=== PATIENT | female | born 1980 | race Caucasian/White ===

== ENCOUNTER 2016-08-22 09:16 | Emergency (ER) | payer BC ==
[2016-08-22 09:16] VITALS: BMI 24.7
[2016-08-22 09:24] VITALS: TEMP 98.4
[2016-08-22 10:09] LABS: RBC URINE 5 /hpf (0-3); URINE BILIRUBIN NEGATIVE (NEGATIVE); URINE BLOOD 1+ (NEGATIVE); URINE COLOR Yellow (YELLOW); URINE GLUCOSE (UA) NORMAL (Normal); URINE KETONE NEGATIVE (NEGATIVE); URINE LEUKOCYTE ESTERASE NEG Leu/uL (Negative); URINE PROTEIN NEGATIVE (NEGATIVE); URINE UROBILINOGEN NORMAL mg/dL (0.2-1.0); WBC URINE 1 /hpf (0-5)
[2016-08-22] MEDS ORDERED: Sodium Chloride 0.9% 1,000 ML IV STA (10:58)
[2016-08-22] MEDS ORDERED: Sodium Chloride 0.9% 1,000 ML ONE (11:12)
[2016-08-22 11:25] LABS: BASO % 0.4 % (0.0-2.0); EOS # 0.1 K/uL (0.0-0.7); EOS % 1.4 % (0.0-4.0); HEMATOCRIT 40.8 % (34.0-47.0); LYMPH # 2.8 K/uL (1.0-4.3); MEAN CELL VOLUME 85.8 fL (81.0-99.0); MEAN CORPUSCULAR HEMOGLOBIN 29.7 pg (27.0-31.0); MEAN CORPUSCULAR HGB CONC 34.6 g/dL (33.0-37.0); MEAN PLATELET VOLUME 8.9 fL (7.2-11.7); MONO # 0.5 K/uL (0.0-0.8); MONO % 6.5 % (0.0-10.0); RED CELL DISTRIBUTION WIDTH 12.7 % (11.5-14.5); WHITE BLOOD COUNT 7.7 K/uL (4.8-10.8)
--- NOTE | 2016-08-22 11:31 | RAD ---
PROCEDURE: Cervical Spine Radiographs. HISTORY: Pain. COMPARISON: None. FINDINGS: BONES: Alignment maintained. No fracture. Dens Intact. DISC SPACES: Normal. SOFT TISSUES: Normal. No prevertebral soft tissue swelling. OTHER FINDINGS: None. IMPRESSION: Normal cervical spine radiographs
[2016-08-22 11:34] LABS: CHLORIDE 101 mmol/L (98-107); SODIUM 137 mmol/L (132-148)
[2016-08-22 11:36] LABS: BILIRUBIN,TOTAL 0.5 mg/dL (0.2-1.3); GFR AFRICAN-AMERICAN > 60
[2016-08-22 11:37] LABS: ALB/GLOB RATIO 1.9 (1.0-2.1); ALKALINE PHOSPHATASE 42 U/L (38-126); ALT/SGPT 28 U/L (9-52); AST/SGOT 18 U/L (14-36); BLOOD UREA NITROGEN 8 mg/dL (7-17); CALCIUM 9.1 mg/dl (8.6-10.4); CARBON DIOXIDE 25 mmol/L (22-30); GLUCOSE,RANDOM 113 mg/dL (65-105); TOTAL PROTEIN 7.7 g/dL (6.3-8.3)
--- NOTE | 2016-08-22 12:29 | C.PDOC ---
History Of Present Illness 36 yr old female presents to the ER with complaints of RUQ pain, interminttently for the past several months. Patient states she is unsure what makes it worse and usually has nausea with the pain. Patient is also complaining of pain to the right lateral side of neck for the past few days. Patient denies any injury, trauma, vision changes, chest pain, SOB, vomiting, diarrhea, constipation, dysuria, incontinence, back pain, headache, weakness or numbness. Time Seen by Provider: 08/22/16 10:04 Chief Complaint (Nursing): Abdominal Pain History Per: Patient History/Exam Limitations: no limitations Onset/Duration Of Symptoms: Days (Few days for neck pain ), Persistent (Several months ) Location Of Pain/Discomfort: RUQ Past Medical History Reviewed: Historical Data, Nursing Documentation, Vital Signs Vital Signs: Last Vital Signs Temp 98.4 F 08/22/16 09:20 Pulse 68 08/22/16 13:36 Resp 16 08/22/16 13:36 BP 108/70 08/22/16 13:36 Pulse Ox 100 08/22/16 13:36 Surgical History: Family History: States: No Known Family Hx - Social History Hx Tobacco Use: No Hx Alcohol Use: No Hx Substance Use: No - Immunization History Hx Tetanus Toxoid Vaccination: No Hx Influenza Vaccination: No Hx Pneumococcal Vaccination: No Review Of Systems Except As Marked, All Systems Reviewed And Found Negative. Eyes: Negative for: Vision Change Cardiovascular: Negative for: Chest Pain Respiratory: Negative for: Shortness of Breath Gastrointestinal: Positive for: Nausea, Abdominal Pain (RUQ pain ). Negative for: Vomiting, Diarrhea, Constipation Genitourinary: Negative for: Dysuria, Incontinence Musculoskeletal: Positive for: Neck Pain (Right lateral neck pain ). Negative for: Back Pain Neurological: Negative for: Weakness, Numbness Physical Exam - Physical Exam Appears: Well, Non-toxic, No Acute Distress Skin: Warm, Dry Head: Atraumatic, Normacephalic Eye(s): bilateral: Normal Inspection, PERRL, EOMI Neck: Other ((+) MUscle spasm to the right lateral neck muscle. Tenderness to the right SCM. ) Chest: Symmetrical, No Tenderness Cardiovascular: Rhythm Regular, No Murmur Respiratory: Normal Breath Sounds, No Rales, No Rhonchi, No Stridor, No Wheezing Gastrointestinal/Abdominal: Soft, Tenderness (Tenderness to RUQ ), No Guarding, No Rebound Extremity: Normal ROM, No Swelling Neurological/Psych: Oriented x3, Normal Speech, Normal Motor ED Course And Treatment - Laboratory Results Result Diagrams: 08/22/16 11:21 08/22/16 11:21 O2 Sat by Pulse Oximetry: 99 - Other Rad X-Ray - Cervical Spine X-Ray: Viewed By Me, Read By Radiologist Interpretation: PROCEDURE: Cervical Spine Radiographs. HISTORY: Pain. COMPARISON: None. FINDINGS: BONES: Alignment maintained. No fracture. Dens Intact. DISC SPACES: Normal. SOFT TISSUES: Normal. No prevertebral soft tissue swelling. OTHER FINDINGS: None. IMPRESSION: Normal cervical spine radiographs - CT Scan/US US - Abdomen Other Rad Studies (CT/US): Read By Radiologist, Radiology Report Reviewed CT/US Interpretation: HISTORY: RUQ pain. COMPARISON: None. TECHNIQUE: Grayscale imaging was performed. FINDINGS: LIVER: Measures 16.2 cm in length. Normal echogenicity of the liver parenchyma. No mass. No intrahepatic bile duct dilatation. GALLBLADDER: No gallstones, wall thickening or pericholecystic fluid. The sonographic Broussard's sign is negative per. COMMON BILE DUCT: Measures 2.4 mm. No stones. No dilatation. PANCREAS: Unremarkable as visualized. No mass. No ductal dilatation. RIGHT KIDNEY: Measures 10.6 cm in length. Normal echogenicity. No calculus, mass, or hydronephrosis. AORTA: No aneurysmal dilatation. IVC: Unremarkable. OTHER FINDINGS: None . IMPRESSION: No significant sonographic abnormality. Medical Decision Making Medical Decision Making: PLAN: * X-Ray - Cervical Spine * US - Abdomen * CBC * CMP * HCG * Urinalysis * Protonix IVP * Toradol IVP * Zofran IVP * Sodium Chloride IV Disposition - Disposition Disposition: HOME/ ROUTINE Disposition Time: 12:51 Condition: STABLE Additional Instructions: Follow up with your PMD within 1-2 days. Return to ED if feel worse. Prescriptions: Ibuprofen [Motrin Tab] 600 mg PO Q8 #30 tab diaZEpam [Valium] 2 mg PO TID #15 tab Instructions: Flank Pain (ED), Muscle Spasm (ED), Neck Exercises (GEN) - Clinical Impression Clinical Impression: Flank pain, Torticollis - PA / [employer]CH[employer]ICAL OFFICER / Resident Statement MD/DO has reviewed & agrees with the documentation as recorded. - Scribe Statement The provider has reviewed the documentation as recorded by the Scribe Jannie Rivera All medical record entries made by the Jose A were at my direction and personally dictated by me. I have reviewed the chart and agree that the record accurately reflects my personal performance of the history, physical exam, medical decision making, and the department course for this patient. I have also personally directed, reviewed, and agree with the discharge instructions and disposition.
[2016-08-22 13:37] VITALS: BP 108/70; PULSE 68; RESP 16
[2016-08-22 17:45] VITALS: O2SAT 99
== END 2016-08-22 13:37 | disposition home or self-care (01) ==
LOC: C.ER 09:16
DX: R10.11 Right upper quadrant pain (principal); M43.6 Torticollis
CPT/HCPCS: 72040; 76705; 80053; 81001; 83690; 84703; 85025; 96361; 96374; 96375; 99285; C9113; J1885; J2405; J7040

== ENCOUNTER 2016-12-29 14:01 | Emergency (ER) | payer OTHER ==
[2016-12-29 14:02] VITALS: BMI 24.7
[2016-12-29 14:51] LABS: RBC URINE 3 /hpf (0-3); URINE BILIRUBIN NEGATIVE (NEGATIVE); URINE BLOOD NEGATIVE (NEGATIVE); URINE COLOR Yellow (YELLOW); URINE GLUCOSE (UA) NORMAL (Normal); URINE KETONE NEGATIVE (NEGATIVE); URINE LEUKOCYTE ESTERASE NEG Leu/uL (Negative); URINE PROTEIN NEGATIVE (NEGATIVE); URINE UROBILINOGEN NORMAL mg/dL (0.2-1.0); WBC URINE < 1 /hpf (0-5)
[2016-12-29] MEDS ORDERED: Sodium Chloride 0.9% 1,000 ML IV ONE (14:59)
[2016-12-29 15:16] LABS: BASO % 0.4 % (0.0-2.0); EOS # 0.2 K/uL (0.0-0.7); EOS % 1.8 % (0.0-4.0); LYMPH # 2.4 K/uL (1.0-4.3); LYMPH % 24.7 % (20.0-40.0); MEAN CELL VOLUME 86.6 fL (81.0-99.0); MEAN CORPUSCULAR HEMOGLOBIN 30.5 pg (27.0-31.0); MEAN CORPUSCULAR HGB CONC 35.2 g/dL (33.0-37.0); MEAN PLATELET VOLUME 9.1 fL (7.2-11.7); MONO # 0.5 K/uL (0.0-0.8); MONO % 5.5 % (0.0-10.0); RED CELL DISTRIBUTION WIDTH 12.6 % (11.5-14.5); WHITE BLOOD COUNT 9.6 K/uL (4.8-10.8)
--- NOTE | 2016-12-29 15:22 | C.PDOC ---
History Of Present Illness Patient is a 36 year old female with three day history of dizziness, described as room spinning, with associated nausea. Patient denies headache, syncope, chest pain, shortness of breath, vomiting, or abdominal pain. Time Seen by Provider: 12/29/16 14:24 Chief Complaint (Nursing): Dizziness/Lightheaded History Per: Patient History/Exam Limitations: no limitations Onset/Duration Of Symptoms: Days (3 days ) Current Symptoms Are (Timing): Still Present Seizure Or Post-ictal Symptoms: None Fall Associated With With Symptoms: No Recent travel outside of the [place]: No Past Medical History Reviewed: Historical Data, Nursing Documentation, Vital Signs Vital Signs: Last Vital Signs Temp 98.6 F 12/29/16 15:52 Pulse 91 H 12/29/16 15:52 Resp 18 12/29/16 15:52 BP 98/63 L 12/29/16 15:52 Pulse Ox 98 12/29/16 15:52 Surgical History: Denies: Pacemaker Family History: States: Unknown Family Hx - Social History Hx Tobacco Use: No Hx Alcohol Use: No Hx Substance Use: No - Immunization History Hx Tetanus Toxoid Vaccination: No Hx Influenza Vaccination: No Hx Pneumococcal Vaccination: No Review Of Systems Constitutional: Negative for: Fever, Chills ENT: Negative for: Ear Pain, Ear Discharge, Mouth Swelling, Throat Pain Cardiovascular: Negative for: Chest Pain, Palpitations, Orthopnea, Edema, Light Headedness Respiratory: Negative for: Cough, Shortness of Breath, SOB with Excertion, Wheezing Gastrointestinal: Negative for: Nausea, Vomiting, Abdominal Pain, Constipation Genitourinary: Negative for: Dysuria, Vaginal Discharge, Vaginal Bleeding Musculoskeletal: Negative for: Neck Pain, Arm Pain Neurological: Positive for: Dizziness. Negative for: Headache Physical Exam - Physical Exam Appears: Well, Non-toxic, No Acute Distress Skin: Warm, Dry Head: Atraumatic, Normacephalic, No Tenderness, No Swelling, No Abrasion, No Laceration Eye(s): bilateral: Normal Inspection, PERRL, EOMI Ear(s): Bilateral: Normal Nose: Normal, No Discharge Oral Mucosa: Moist Neck: Supple Chest: Symmetrical, No Deformity Cardiovascular: Rhythm Regular, No Murmur Respiratory: No Rales, No Rhonchi, No Wheezing, Other (clear to auscultation bilaterally ) Gastrointestinal/Abdominal: Soft, No Tenderness Back: Normal Inspection, No CVA Tenderness Extremity: Normal ROM, No Tenderness Neurological/Psych: Oriented x3, Normal Speech, Normal Cognition, Normal Cranial Nerves, No Cerebellar Signs, Normal Motor, Normal Sensation Gait: Steady ED Course And Treatment - Laboratory Results Result Diagrams: 12/29/16 15:12 12/29/16 15:12 ECG: Interpreted By Me, Viewed By Me ECG Rhythm: Sinus Rhythm ECG Interpretation: No Changes From Prior (EKG on December 2015. ) Interpretation Of ECG: Incomplete Right BBB. Rate From EC O2 Sat by Pulse Oximetry: 99 (RA) Medical Decision Making Medical Decision Making: EKG and labs were ordered. Patient was given Antivert, Reglan, and IV fluids. UPreg was and UA resulted as negative. 3:40PM EKG shows NSR at 92bpm with incomplete RBBB, unchanged from prior. Labs grossly normal. Patient reports that symptoms are resolved and she now feels better. She is ambulating around the ED without issue. Will dc Disposition - Disposition Disposition: HOME/ ROUTINE Disposition Time: 15:42 Condition: GOOD Additional Instructions: Follow-up with PMD within 2 days. Take meclizine as needed. Return to ED if condition worsens. Prescriptions: Meclizine [Meclizine*] 25 mg PO Q6 #30 tab Instructions: Vertigo (ED), Dizziness (ED) Forms: [facility] (Ukrainian), Work Excuse - Clinical Impression Clinical Impression: Dizziness - Scribe Statement The provider has reviewed the documentation as recorded by the Scribpaty Perales All medical record entries made by the Waldoibpaty were at my direction and personally dictated by me. I have reviewed the chart and agree that the record accurately reflects my personal performance of the history, physical exam, medical decision making, and the department course for this patient. I have also personally directed, reviewed, and agree with the discharge instructions and disposition.
[2016-12-29 15:30] LABS: CHLORIDE 99 mmol/L (98-107); POTASSIUM 3.8 mmol/L (3.6-5.2); SODIUM 137 mmol/L (132-148)
[2016-12-29 15:33] LABS: ALB/GLOB RATIO 1.1 (1.0-2.1); ALKALINE PHOSPHATASE 49 U/L (38-126); ALT/SGPT 45 U/L (9-52); AST/SGOT 21 U/L (14-36); BILIRUBIN,TOTAL 0.5 mg/dL (0.2-1.3); BLOOD UREA NITROGEN 10 mg/dL (7-17); CALCIUM 9.3 mg/dl (8.6-10.4); CARBON DIOXIDE 27 mmol/L (22-30); GFR AFRICAN-AMERICAN > 60; GLUCOSE,RANDOM 139 mg/dL (65-105); TOTAL PROTEIN 8.2 g/dL (6.3-8.3)
[2016-12-29 15:53] VITALS: BP 98/63; PULSE 91; RESP 18; TEMP 98.6
[2016-12-29 17:03] VITALS: O2SAT 99
--- NOTE | 2016-12-30 19:18 | CARD ---
APPROVED REPORT EKG Measurement Heart [id number] <Conclusion> Normal sinus rhythm Incomplete right bundle branch block Borderline ECG
--- NOTE | 2016-12-30 19:19 | CARD ---
APPROVED REPORT EKG Measurement Heart [id number] [place] [id number] <Conclusion> Normal sinus rhythm Incomplete right bundle branch block Borderline ECG
== END 2016-12-29 16:38 | disposition home or self-care (01) ==
LOC: C.ER 14:01
DX: R42 Dizziness and giddiness (principal)
CPT/HCPCS: 80053; 81001; 84703; 85025; 93005; 96361; 96374; 99285; J2765; J7040

== ENCOUNTER 2017-02-12 10:12 | Emergency (ER) | payer MEDICAID ==
[2017-02-12 10:25] VITALS: BMI 22.9
[2017-02-12] MEDS ORDERED: Sodium Chloride 0.9% 1,000 ML IV ONE (10:44)
[2017-02-12 10:49] VITALS: RESP 17
[2017-02-12] MEDS ORDERED: Sodium Chloride 0.9% 1,000 ML ONE (11:13)
[2017-02-12 11:14] LABS: BASO % 0.3 % (0.0-2.0); EOS # 0.1 K/uL (0.0-0.7); EOS % 1.1 % (0.0-4.0); LYMPH % 14.7 % (20.0-40.0); MEAN CORPUSCULAR HEMOGLOBIN 30.4 pg (27.0-31.0); MEAN CORPUSCULAR HGB CONC 34.9 g/dL (33.0-37.0); MEAN PLATELET VOLUME 8.8 fL (7.2-11.7); MONO # 0.4 K/uL (0.0-0.8); MONO % 5.7 % (0.0-10.0); RED CELL DISTRIBUTION WIDTH 12.4 % (11.5-14.5); WHITE BLOOD COUNT 6.8 K/uL (4.8-10.8)
--- NOTE | 2017-02-12 11:23 | C.PDOC ---
History Of Present Illness 36 year old female presents to the ED for evaluation of abdominal pain which began when she woke up this morning. Patient describes her symptoms as a cramping sensation that is associated with nausea. She was evaluated in this ED yesterday for similar complaints and underwent CT scan, which showed enteritis. Patient was admitted to hospital, but then stated that her symptoms improved and was discharged. She denies fever, chills, diarrhea, vomiting, dysuria, hematuria, vaginal bleeding/discharge, or any sick contacts. Time Seen by Provider: 02/12/17 10:17 Chief Complaint (Nursing): Abdominal Pain History Per: Patient History/Exam Limitations: no limitations Onset/Duration Of Symptoms: Hrs Current Symptoms Are (Timing): Still Present Location Of Pain/Discomfort: Diffuse Quality Of Discomfort: Cramping, "Pain" Associated Symptoms: Vomiting. denies: Fever, Chills, Diarrhea, Urinary Symptoms Additional History Per: Patient Abnormal Vaginal Bleeding: No Past Medical History Reviewed: Historical Data, Nursing Documentation, Vital Signs Vital Signs: Last Vital Signs Temp 98.0 F 02/12/17 10:25 Pulse 109 H 02/12/17 10:25 Resp 17 02/12/17 10:48 BP 93/66 L 02/12/17 10:25 Pulse Ox 99 02/12/17 11:37 - Medical History PMH: No Chronic Diseases Surgical History: Denies: Pacemaker Family History: States: Unknown Family Hx - Social History Hx Tobacco Use: No Hx Alcohol Use: No Hx Substance Use: No - Immunization History Hx Tetanus Toxoid Vaccination: No Hx Influenza Vaccination: No Hx Pneumococcal Vaccination: No Review Of Systems Constitutional: Negative for: Fever, Chills Gastrointestinal: Positive for: Nausea, Abdominal Pain. Negative for: Vomiting , Diarrhea Genitourinary: Negative for: Dysuria, Hematuria, Vaginal Discharge, Vaginal Bleeding Physical Exam - Physical Exam Appears: Non-toxic, No Acute Distress, Other (comfortable ) Skin: Normal Color, Warm, Dry Oral Mucosa: Moist Neck: Supple Chest: Symmetrical, No Deformity, No Tenderness Cardiovascular: Rhythm Regular, No Murmur Respiratory: Normal Breath Sounds, No Rales, No Rhonchi, No Wheezing Gastrointestinal/Abdominal: Soft, Tenderness (mild, diffuse on palpation ), No Guarding, No Rebound, No Other (Broussard's Sign, McBurney's point tenderness ) Extremity: Normal ROM, Capillary Refill (less than 2 seconds ) Neurological/Psych: Oriented x3, Normal Speech, Normal Cognition Gait: Steady ED Course And Treatment - Laboratory Results Result Diagrams: 02/12/17 11:10 02/12/17 11:10 O2 Sat by Pulse Oximetry: 99 (on RA) Pulse Ox Interpretation: Normal Progress Note: Bloodwork and UA ordered and reviewed. Bentyl PO, Zofran IVP, and IV Fluids administered. Disposition Counseled Patient/Family Regarding: Studies Performed, Diagnosis, Need For Followup, Rx Given - Disposition Referrals: [facility] at [facility] [Outside] Disposition: HOME/ ROUTINE Disposition Time: 12:35 Condition: STABLE Additional Instructions: DRINK PLENTY OF CLEAR FLUIDS, AND ADVANCE SLOWLY TO BLAND DIET USE BENTYL AND ZOFRAN NEEDED USE COLACE IN SEVERAL DAYS ONCE SYMPTOMS IMPROVED RETURN TO ER IF SYMPTOMS WORSEN Prescriptions: Dicyclomine [Bentyl] 20 mg PO Q6 PRN #15 tab PRN Reason: ABDOMINAL CRAMPING Docusate [Colace] 100 mg PO DAILY #30 cap Ondansetron [Zofran Odt] 4 mg PO Q8 PRN #12 odt PRN Reason: Nausea/Vomiting Instructions: Gastroenteritis (ED) Forms: [employer] (Icelandic) Print Language: SYRIAC - POA Present On Arrival: None - Clinical Impression Clinical Impression: Viral syndrome, Gastroenteritis - Scribe Statement The provider has reviewed the documentation as recorded by the Scribe (Anita Barlow) Provider Attestation: All medical record entries made by the Scribe were at my direction and personally dictated by me. I have reviewed the chart and agree that the record accurately reflects my personal performance of the history, physical exam, medical decision making, and the department course for this patient. I have also personally directed, reviewed, and agree with the discharge instructions and disposition.
[2017-02-12 11:27] LABS: RBC URINE 29 /hpf (0-3); URINE BILIRUBIN NEGATIVE (NEGATIVE); URINE BLOOD 1+ (NEGATIVE); URINE GLUCOSE (UA) NORMAL (Normal); URINE KETONE TRACE mg/dL (NEGATIVE); URINE LEUKOCYTE ESTERASE NEG Leu/uL (Negative); URINE PROTEIN 1+ mg/dL (NEGATIVE); WBC URINE 1 /hpf (0-5)
[2017-02-12 11:31] LABS: URINE COLOR YELLOW (YELLOW)
[2017-02-12 11:38] LABS: ALKALINE PHOSPHATASE 40 U/L (38-126); ALT/SGPT 40 U/L (9-52); AST/SGOT 29 U/L (14-36); BILIRUBIN,TOTAL 0.5 mg/dL (0.2-1.3); BLOOD UREA NITROGEN 10 mg/dL (7-17); CALCIUM 7.7 mg/dl (8.6-10.4); CARBON DIOXIDE 26 mmol/L (22-30); CHLORIDE 97 mmol/L (98-107); GFR AFRICAN-AMERICAN > 60; GLUCOSE,RANDOM 119 mg/dL (65-105); POTASSIUM 3.2 mmol/L (3.6-5.2); SODIUM 129 mmol/L (132-148); TOTAL PROTEIN 7.3 g/dL (6.3-8.3)
[2017-02-12] MEDS ORDERED: Potassium Chloride 20 mEq ER Tab PO STA (12:06)
[2017-02-12] MEDS ORDERED: Potassium Chloride 20 mEq ER Tab PO ONE (12:18)
[2017-02-12 12:45] VITALS: BP 97/61; PULSE 96; TEMP 99.9; O2SAT 98
== END 2017-02-12 12:59 | disposition home or self-care (01) ==
LOC: C.ER 10:12
DX: B34.9 Viral infection, unspecified (principal); K52.9 Noninfective gastroenteritis and colitis, unspecified; E87.6 Hypokalemia
CPT/HCPCS: 80053; 81001; 82009; 83690; 84703; 85025; 96361; 96374; 99285; J2405; J7040

== ENCOUNTER 2017-02-15 19:00 | Emergency (ER) | payer MEDICAID ==
[2017-02-15 19:00] VITALS: BMI 22.9
[2017-02-15 19:14] VITALS: O2SAT 98
[2017-02-15] MEDS ORDERED: Sodium Chloride 0.9% 1,000 ML IV ONE (19:38)
--- NOTE | 2017-02-15 19:56 | C.PDOC ---
History Of Present Illness 36 year old female presents to the ER with a complaint of lower abdominal pain and rectal bleeding that began today. Patient was admitted a few days ago for enteritis. Denies fever, chills, nausea, or vomiting. Chief Complaint (Nursing): GI Problem History Per: Patient History/Exam Limitations: no limitations Onset/Duration Of Symptoms: Days Current Symptoms Are (Timing): Still Present Location Of Pain/Discomfort: RUQ, LUQ Quality Of Discomfort: Unable To Describe Associated Symptoms: denies: Fever, Chills, Nausea, Vomiting Exacerbating Factors: None Alleviating Factors: None Recent travel outside of the [place]: No Abnormal Vaginal Bleeding: No Past Medical History Reviewed: Historical Data, Nursing Documentation, Vital Signs Vital Signs: Last Vital Signs Temp 98.1 F 02/15/17 19:11 Pulse 90 02/15/17 19:11 Resp 16 02/15/17 19:11 BP 105/74 02/15/17 19:11 Pulse Ox 98 02/15/17 20:03 - Medical History PMH: No Chronic Diseases Surgical History: Family History: States: Unknown Family Hx - Social History Hx Tobacco Use: No Hx Alcohol Use: No Hx Substance Use: No - Immunization History Hx Tetanus Toxoid Vaccination: No Hx Influenza Vaccination: No Hx Pneumococcal Vaccination: No Review Of Systems Constitutional: Negative for: Fever, Chills Gastrointestinal: Positive for: Abdominal Pain, Other (Rectal bleed). Negative for: Nausea, Vomiting Physical Exam - Physical Exam Appears: Non-toxic, No Acute Distress, Other (Alert, Conscious) Skin: Normal Color, Warm, Dry Head: Atraumatic, Normacephalic Oral Mucosa: Moist Chest: Symmetrical Cardiovascular: Rhythm Regular Respiratory: Normal Breath Sounds Gastrointestinal/Abdominal: Soft, Tenderness (Mild bilateral lower quadrant), No Guarding, No Rebound Rectal: No Other (Bleeding) Neurological/Psych: Oriented x3, Normal Speech, Other (No focal deficits) ED Course And Treatment - Laboratory Results Result Diagrams: 02/15/17 19:55 02/15/17 19:55 O2 Sat by Pulse Oximetry: 98 Progress Note: Blood work, urinalysis, and occult stool test ordered. IV fluids administered. Disposition Counseled Patient/Family Regarding: Diagnosis - Disposition Referrals: [facility] [Outside] Disposition: HOME/ ROUTINE Disposition Time: 20:13 Condition: STABLE Instructions: Enteritis (ED), Rectal Bleeding (DC) Forms: [employer] [facility] (Kiswahili) - POA Present On Arrival: None - Clinical Impression Clinical Impression: Gastroenteritis, Rectal bleed - Scribe Statement The provider has reviewed the documentation as recorded by the Scribpaty Sellers All medical record entries made by the Waldoibpaty were at my direction and personally dictated by me. I have reviewed the chart and agree that the record accurately reflects my personal performance of the history, physical exam, medical decision making, and the department course for this patient. I have also personally directed, reviewed, and agree with the discharge instructions and disposition.
[2017-02-15 19:58] LABS: BASO % 0.3 % (0.0-2.0); EOS # 0.1 K/uL (0.0-0.7); EOS % 1.7 % (0.0-4.0); HEMATOCRIT 37.1 % (34.0-47.0); LYMPH # 2.3 K/uL (1.0-4.3); LYMPH % 30.4 % (20.0-40.0); MEAN CELL VOLUME 85.6 fL (81.0-99.0); MEAN CORPUSCULAR HEMOGLOBIN 29.9 pg (27.0-31.0); MEAN CORPUSCULAR HGB CONC 34.9 g/dL (33.0-37.0); MEAN PLATELET VOLUME 8.5 fL (7.2-11.7); MONO # 0.5 K/uL (0.0-0.8); MONO % 5.9 % (0.0-10.0); RED CELL DISTRIBUTION WIDTH 12.7 % (11.5-14.5); WHITE BLOOD COUNT 7.7 K/uL (4.8-10.8)
[2017-02-15 20:11] LABS: ALB/GLOB RATIO 1.5 (1.0-2.1); ALKALINE PHOSPHATASE 34 U/L (38-126); ALT/SGPT 47 U/L (9-52); AST/SGOT 27 U/L (14-36); BILIRUBIN,TOTAL 0.4 mg/dL (0.2-1.3); BLOOD UREA NITROGEN 8 mg/dL (7-17); CALCIUM 8.3 mg/dl (8.6-10.4); CARBON DIOXIDE 30 mmol/L (22-30); CHLORIDE 100 mmol/L (98-107); GFR AFRICAN-AMERICAN > 60; GLUCOSE,RANDOM 108 mg/dL (65-105); POTASSIUM 3.6 mmol/L (3.6-5.2); SODIUM 139 mmol/L (132-148); TOTAL PROTEIN 6.5 g/dL (6.3-8.3)
[2017-02-15 20:14] LABS: RBC URINE < 1 /hpf (0-3); URINE BILIRUBIN NEGATIVE (NEGATIVE); URINE BLOOD NEGATIVE (NEGATIVE); URINE COLOR Straw (YELLOW); URINE GLUCOSE (UA) NORMAL (Normal); URINE KETONE NEGATIVE (NEGATIVE); URINE LEUKOCYTE ESTERASE NEG Leu/uL (Negative); URINE PROTEIN NEGATIVE (NEGATIVE); URINE UROBILINOGEN NORMAL mg/dL (0.2-1.0)
[2017-02-15 20:41] VITALS: BP 106/61; PULSE 84; RESP 18; TEMP 98.5
== END 2017-02-15 20:43 | disposition home or self-care (01) ==
LOC: C.ER 19:00
DX: K52.9 Noninfective gastroenteritis and colitis, unspecified (principal); K62.5 Hemorrhage of anus and rectum
CPT/HCPCS: 80053; 81001; 84703; 85025; 85610; 85730; 86850; 86900; 99284; G0328; J7040